=== PATIENT | female | born 1990 | race Two or more races ===

== ENCOUNTER 2024-01-28 03:51 | Emergency (ER) | payer MEDICAID, SELFPAY ==
[2024-01-28] MEDS: HALOPERIDOL LACT INJ 5 MG/ML VIAL IM (04:03)
[2024-01-28] MEDS: LORazepam 2 MG/ML VIAL IM (04:04)
[2024-01-28] MEDS: DiphenhydrAMINE INJ 50 MG/ML VIAL IM (04:04)
[2024-01-28 04:15] VITALS: BP 107/64; PULSE 126; RESP 19; TEMP 37.2; O2SAT 97
[2024-01-28 04:34] LABS: Basophils # (Auto) 0.1 Thou/mm3 (0.0-0.2); Basophils % (Auto) 1 % (0-2.5); Eosinophils # (Auto) 0.4 Thou/mm3 (0.0-0.5); Eosinophils % (Auto) 3 % (0-10); Hemoglobin 14.5 g/dL (12.0-16.0); Immature Granulocytes % (Auto) 0 % (0-0); Immature Granulocytes Auto 0.03 Thou/mm3 (0.00-0.00); Lymphocytes # (Auto) 3.8 Thou/mm3 (1.0-4.8); Lymphocytes % (Auto) 34 % (10-50); Mean Corpuscular HGB Conc 35.4 g/dl (31.0-37.0); Mean Corpuscular Hemoglobin 31.7 pg (25.0-35.0); Mean Corpuscular Volume 90 fL (80-100); Monocytes # (Auto) 0.7 Thou/mm3 (0.0-0.8); Monocytes % (Auto) 7 % (0-12); Neutrophils # (Auto) 6.3 Thou/mm3 (1.8-7.7); Neutrophils % (Auto) 55 % (37-80); Nucleated Red Blood Cell % 0 /100 WBC (0); Platelet Count 328 Thou/mm3 (140-440); RDW Standard Deviation 40.2 fL (36.4-46.3); Red Blood Count 4.58 Miln/mm3 (4.00-5.20); White Blood Count 11.3 Thou/mm3 (3.6-11.0)
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
[2024-01-28 04:55] LABS: Alanine Aminotransferase 23 U/L (10-49); Albumin, Serum 5.3 gm/dL (3.5-5.0); Albumin/Globulin Ratio 2.1 (1.2-2.2); Alcohol, Blood Medical 125.3 mg/dL (0-10.0); Alkaline Phosphatase 69 U/L (46-116); Anion Gap 15 (7-16); Aspartate Amino Transferase 33 U/L (0-34); BUN/Creatinine Ratio 12 Ratio (12-20); Bilirubin,Total 0.5 mg/dL (0.3-1.2); Blood Urea Nitrogen 14 mg/dL (9-23); Calcium 9.5 mg/dL (8.3-10.6); Calcium (Corrected) 9.5 mg/dL (8.5-10.1); Chloride 102 mMol/L (98-107); Creatinine (Component) 1.2 mg/dL (0.6-1.3); Globulin 2.5 gm/dL (2.3-3.5); Glucose 100 mg/dL (74-106); Osmolality,Calculated 276 (275-295); Potassium 3.5 mMol/L (3.4-5.1); Sodium 138 mMol/L (136-145); Total Protein 7.8 gm/dL (5.7-8.2); eGFR > 60 See Note
[2024-01-28 05:23] LABS: HCG,Qualitative Serum Negative
[2024-01-28 06:24] VITALS: BP 110/72; PULSE 118; RESP 18; TEMP 37; O2SAT 96
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
--- NOTE | 2024-01-28 10:51 | PD.EDADDENDU ---
Emergency Room Addendum <Shaye Blanco - Last Filed: 01/28/24 17:55> Addendum Narrative: 0600: Care assumed from Dr. Hoffmann, the previous shift emergency physician. Past medical, surgical, social and family history reviewed. Vitals and home medications reviewed. I will assume the care of the patient at this time, pending medical clearance for mental health evaluation. Please refer to the emergency department record for history and examination from initial visit.? Vital signs reviewed by me. custodial records reviewed by me. [place] medical records reviewed by me. 1800: Patient signed out to Dr. Miller pending mental health evaluation and final disposition. <Maicol Ortega MD - Last Filed: 01/28/24 18:23> Addendum Narrative: 0600: Care assumed from Dr. Hoffmann, the previous shift emergency physician. Past medical, surgical, social and family history reviewed. Vitals and home medications reviewed. I will assume the care of the patient at this time, pending medical clearance for mental health evaluation. Please refer to the emergency department record for history and examination from initial visit.? Vital signs reviewed by me. custodial records reviewed by me. [place] medical records reviewed by me. 5 PM, I tried to asked the patient to give me some urine sample so we can do the drug screen. But she appeared to be very sleepy. And mental health/social work therapist said that he could not assess her either because it was so sleepy. Patient did get some Haldol, Benadryl and Ativan earlier this morning from my predecessor Dr. Hoffmann. Nurse then informed me that the patient has not been eating or drinking much anything since this morning. Therefore I am asking nursing staff to insert an IV and give the patient a liter of normal saline bolus to keep well-hydrated. 1800: Patient signed out to Dr. Miller pending mental health evaluation and final disposition.
--- NOTE | 2024-01-28 12:20 | PC.NURSE ---
attempted to ask patient questions for assessment patient refused to answer any questions at the moment.
--- NOTE | 2024-01-28 12:23 | PC.NURSE ---
attempted to ask patient question about [place] scale patient refused to answer any questions at the moment
--- NOTE | 2024-01-28 12:45 | PC.NURSE ---
patient refusing to give urine sample at this moment
--- NOTE | 2024-01-28 14:51 | PC.NURSE ---
Patient has been refusing care and vital signs
[2024-01-28 16:42] VITALS: BP 99/64; PULSE 88; RESP 16; TEMP 36.8; O2SAT 99
[2024-01-28] MEDS: SODIUM CHLORIDE 0.9% 1000 ML 1,000 ML 999 ML IV (16:51)
--- NOTE | 2024-01-28 18:13 | EDNOTE_ITS ---
Emergency Room Addendum <Dunia Wolff - Last Filed: 01/29/24 05:22> Addendum Narrative: 1800: Care assumed from Dr. Ortega the previous shift emergency physician. Past medical, surgical, social and family history reviewed. Vitals and home medications reviewed. Results and treatment plan discussed. I will assume the care of the patient at this time and will follow the patient, pending clearance for mental health evaluation and final disposition. Please refer to the emergency department record for history and examination from initial visit. 2121: Patient is medically clear for crisis evaluation. Patient was placed in observation for treatment and monitoring of psychiatric symptoms, at 212101/28/2024. Symptoms consist of suicidal ideation and depression. Treatment plan includes psychiatric consult, reassessments, and possible placement into psychiatric facility. The patient had access and provided personal hygiene, shower, food, water, and daily medications. 0600: Care signed out to Dr. Ortega (emergency physician). Past medical, surgical, social and family history reviewed. Vitals and home medications reviewed. Results and treatment plan discussed. They will assume the care of the patient at this time and will follow the patient, pending mental health evaluati on. At this time, observation has ended. <Sarkis Miller MD - Last Filed: 01/29/24 05:50> Addendum Narrative: At 6 PM on 01/28/2024, I took over the care from Dr. Ortega, see his notes for complete H&P and ED course. During my watch, patient remained stable. At 6 AM on 01/29/2024, the care of the patient was transferred to Dr. Ortega. Sarkis Miller MD
[2024-01-28 19:01] VITALS: BMI 20.5
--- NOTE | 2024-01-28 19:15 | PC.NURSE ---
Assume care for this Pt at this time and got report from Lobito BAUMAN. Pt still pending medical clearance due to refusing to provide a urine sample. Pt is calm at this time, no c/o of any discomfort, denied any SI/HI. 1 on 1 sitter in placed.
[2024-01-28 19:26] LABS: Acetaminophen < 2.0 mcg/mL (10.0-20.0); Magnesium 2.2 mg/dL (1.6-2.6); Salicylate < 3.0 mg/dL; Thyroid Stimulating Hormone 0.81 uIU/mL (0.55-4.78)
[2024-01-28 20:06] LABS: Collection Type, Urine Clean Catch
[2024-01-28 20:17] LABS: Bilirubin,Urine Negative (Negative); Blood,Urine Negative (Negative); Clarity,Urine Clear (Clear/Hazy); Color,Urine Lt-Yellow (Lt Yel-Yel); Glucose, Urine Negative (Negative); Hyaline Casts,Urine < 1 /hpf (0-1); Ketones,Urine 1+ (Negative); Leukocyte Esterase,Urine Negative (Negative); Nitrite,Urine Negative (Negative); PH,Urine 5.5 (5.0-7.0); Protein,Urine Trace (Neg - Trace); RBC,Urine 1 /hpf (0-3); Specific Gravity,Urine 1.017 (1.001-1.035); Squamous Epithelial Cell,Urine < 1 /hpf (0-5); Urobilinogen,Urine Negative mg/dL (0.0-1.0); WBC,Urine 2 /hpf (0-5)
[2024-01-28 20:31] LABS: Amphetamine/Methamp Scrn,U Positive (Negative); Barbiturate Screen,Urine Negative (Negative); Benzodiazepines Screen,Urine Negative (Negative); Benzoylecgonine Screen, Ur Positive (Negative); Fentanyl Screen,Urine Negative (Negative); Opiate Screen,Urine Negative (Negative); THC Screen,Urine Negative (Negative)
[2024-01-28 21:27] VITALS: BP 114/70; PULSE 87; RESP 16; TEMP 37.1; O2SAT 99
[2024-01-29 05:00] VITALS: BP 124/68; PULSE 61; RESP 16; TEMP 36.7; O2SAT 99
--- NOTE | 2024-01-29 06:18 | EDNOTE_ITS ---
Emergency Room Addendum <Shaye Blanco - Last Filed: 01/29/24 06:20> Addendum Narrative: [address] Miller, the previous shift emergency physician. Past medical, surgical, social and family history reviewed. Vitals and home medications reviewed. Results and treatment plan discussed. The patient was placed in ED observation care at 0600 01/29/2024, pending mental health evaluation. Please refer to the emergency department record for history and examination.? While in ED observation the pt will have access to water, food, and personal hygiene. If the pt takes home medication(s), they will be continued in ED observation. <Maicol Ortega MD - Last Filed: 01/29/24 13:15> Addendum Narrative: [address] Miller, the previous shift emergency physician. Past medical, surgical, social and family history reviewed. Vitals and home medications reviewed. Results and treatment plan discussed. The patient was placed in ED observation care at 0600 01/29/2024, pending mental health evaluation. Please refer to the emergency department record for history and examination.? While in ED observation the pt will have access to water, food, and personal hygiene. If the pt takes home medication(s), they will be continued in ED observation. 1 PM, social work case manager, mental health customer contact sales associate Fan informed me that the p atient can go home. The father will come in to pick the patient up in a few hours. He had rescinded the 5150. The patient is cooperative and behaving well. Patient is sleeping in her gurney but easily awakened to answer question well. I offered her some food and she said no. Diagnosis: Alcohol use Methamphetamine positive Cocaine positive Temporary drug induced psychosis Condition: Stable and improved to go home DC instruction: If you do methamphetamine and cocaine, please stop Also avoid alcohol Follow-up with mental health Follow-up with your medical doctor Return the ER for any problem
--- NOTE | 2024-01-29 07:49 | PC.NURSE ---
Pt given food and drink. Pt GCS of 15 A&O x4. Pt not c/o of any discomfort at this time. Pt given update on plan of care. 1 on 1 sitter in placed.
[2024-01-29 12:04] VITALS: BP 111/69; PULSE 73; RESP 19; TEMP 36.6; O2SAT 97
--- NOTE | 2024-01-29 13:29 | PC.NURSE ---
father at bedside
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
--- NOTE | 2024-01-29 16:41 | PC.CC ---
Per 5150 hold request, ASW left message for Officer Nathanael on hold being rescinded. ASW informed that Officer Nathanael will be out until 02/02/24. Message left for call back.
== END 2024-01-29 13:48 | disposition home or self-care (01) ==
PROVIDERS: Emergency Medicine; Emergency Provider Emergency Medicine
DX: Z04.6 Encounter for general psychiatric examination, requested by authority (principal); F10.90 Alcohol use, unspecified, uncomplicated; F15.959 Other stimulant use, unspecified with stimulant-induced psychotic disorder, unspecified; Y90.6 Blood alcohol level of 120-199 mg/100 ml
CPT/HCPCS: 36415; 80053; 80307; 80320; 80329; 81001; 83735; 84443; 84703; 85025; 96127; 96360; 96372; 99285; J1200; J1630; J2060; J7030; G0480

== ENCOUNTER → 2024-07-29 | Outpatient (CLI) | payer MEDICAID, SELFPAY ==
--- NOTE | 2024-07-29 11:45 | XR_ITS ---
Examination: Screening digital mammography, bilateral Computer aided detection 3-D breast Tomosynthesis, bilateral Date and time of exam: July 29, 2024 1147 hours Compared to mammograms dating to October 05, 2021 Indication: Screening, patient states bilateral breast pain 2 months, lumps in the left breast one year left in the right breast 8 months, family history breast cancer Technique: Nonmagnified MLO, CC views of the breasts to been obtained, reconstructed from 3-D Tomosynthesis images. R2 computer aided detection program utilized for evaluation of suspicious masses and/or abnormal calcifications. 3-D Tomosynthesis images obtained. Findings: The breasts are heterogeneously dense, which may obscure small masses Follow-up spot tomographic views are needed of palpable lumps outer and inner left breast, upper quadrant on the MLO view as well as palpable lumps in the anterior and primarily upper right breast on the MLO view Impression: BI-RADS Category 0: Incomplete: Need additional imaging evaluation. Recommend follow-up spot tomographic views anterior right breast CC, upper right breast MLO view, inner and outer quadrants left breast CC view and upper quadrant left breast MLO view as well as bilateral breast sonography to complete the workup
== END | disposition home or self-care (01) ==
PROVIDERS: Referring Provider Registered Nurse Community Health; Visit Provider Registered Nurse Community Health
DX: Z12.31 Encounter for screening mammogram for malignant neoplasm of breast (principal); R92.8 Other abnormal and inconclusive findings on diagnostic imaging of breast
CPT/HCPCS: 77063; 77067

== ENCOUNTER → 2024-10-10 | Outpatient (CLI) | payer MEDICAID, SELFPAY ==
--- NOTE | 2024-10-10 10:30 | XR_ITS ---
Examination: Breast ultrasound complete, bilateral Date and time of exam: October 10, 2024 1102 hours INDICATIONS: Bilateral breast pain beginning 2 months ago, patient states bilateral palpable lumps in the breast, family history breast cancer, left breast 11:00 nodule 7 mm on ultrasound July 04, 2023 Technique: Real-time grayscale ultrasonographic imaging bilateral breasts, including all 4 quadrants as well as nipple retroareolar and axillary regions. Findings: Sonographic images right breast 10:00 cyst 4 x 4 millimeter No solid nodules Sonographic images left breast 9:00 nodule lobular margins 5 x 6 mm 10:00 circumscribed nodule 5 x 5 mm 10:00 nodule lobular margins 4 x 3 mm IMPRESSION: BI-RADS Category 3: Probably benign findings. Recommend 1 additional 6 month left breast sonogram follow-up to document stability of nodules left breast described above.
--- NOTE | 2024-10-10 11:30 | XR_ITS ---
Examination: Diagnostic digital mammography, bilateral Computer aided detection 3-D breast Tomosynthesis, bilateral Date and time of exam: October 10, 2024 1129 hours INDICATIONS: Patient states bilateral breast pain and bilateral lumps in the left breast one year in the right breast 8 months, family history breast cancer Technique: Nonmagnified MLO, CC views of the breasts to been obtained, reconstructed from 3-D Tomosynthesis images. R2 computer aided detection program utilized for evaluation of suspicious masses and/or abnormal calcifications. 3-D Tomosynthesis images obtained. Findings: The breasts are heterogeneously dense, which may obscure small masses On the spot compression views no suspicious right or left breast masses noted However, please see the left breast sonogram report today indicating left breast 9:00 10:00 nodules which need additional follow-up in 6 months Impression: BI-RADS Category 2: Benign findings Recommend yearly follow-up mammography Please see the left breast sonogram report today recommending 6 month left breast sonogram follow-up to document stability of left breast nodules described on the sonographic report.
== END | disposition home or self-care (01) ==
PROVIDERS: PCP Registered Nurse Community Health; Referring Provider Registered Nurse Community Health; Visit Provider Registered Nurse Community Health
DX: R92.323 Mammographic fibroglandular density, bilateral breasts (principal); N63.25 Unspecified lump in the left breast, overlapping quadrants; N63.22 Unspecified lump in the left breast, upper inner quadrant
CPT/HCPCS: 76641; 77062; 77066; G0279

== ENCOUNTER → 2025-02-05 | Outpatient (CLI) | payer MEDICAID, SELFPAY ==
--- NOTE | 2025-02-05 10:00 | XR_ITS ---
Examination: Breast ultrasound complete, bilateral Date and time of exam: February 05, 2025, 1143 hours INDICATIONS: Left breast 9:00 nodule 6 mm 10:00 nodule 5 mm 10:00 nodule 4 mm on left breast sonogram 10/10/2024 Technique: Real-time grayscale ultrasonographic imaging bilateral breasts, including all 4 quadrants as well as nipple retroareolar and axillary regions. Findings: Sonographic images right breast 10:00 cyst 3 x 3 mm No solid nodules Sonographic images left breast 9:00 nodule 7 x 6 mm lobular margins 10:00 nodule 5 x 5 mm circumscribed 10:00 nodule 7 x 5 mm circumscribed IMPRESSION: BI-RADS Category 3: Probably benign findings Recommend 1 additional 6-month left breast sonogram follow-up to document stability of nodules described above
--- NOTE | 2025-02-05 11:00 | XR_ITS ---
Examination: Diagnostic digital mammography, bilateral Computer aided detection 3-D breast Tomosynthesis, bilateral Date and time of exam: 02/05/2025, 12:15 p.m. Comparisons: September 2021 through October 2024 Indications: Left palpable abnormalities bilaterally Technique: Nonmagnified MLO, CC views of the breasts to been obtained, reconstructed from 3-D Tomosynthesis images. R2 computer aided detection program utilized for evaluation of suspicious masses and/or abnormal calcifications. 3-D Tomosynthesis images obtained. Findings: The breasts are heterogeneously dense, which may obscure small masses. No evidence of new dominant masses or suspicious calcifications. Stable left post biopsy marker clip. Impression: BI-RADS category 2: Benign findings Recommend 1 year follow-up mammogram
== END | disposition home or self-care (01) ==
LOC: CDIM 11:19
DX: R92.323 Mammographic fibroglandular density, bilateral breasts (principal); N63.25 Unspecified lump in the left breast, overlapping quadrants; N63.22 Unspecified lump in the left breast, upper inner quadrant
CPT/HCPCS: 76641; 77062; 77066; G0279